=== PATIENT | male | born 1950 | race Asian ===

== ENCOUNTER → 2017-03-01 | Outpatient (CLI) | payer MEDICARE ==
[~2017-03-01] MED LIST: ATROPINE SULFATE 0.1 MG/ML 10 ML SYRINGE IVP ONE; ATROPINE SULFATE 1 MG/ML VIAL ONE; DOBUTamine HCL/D5W 500 MG/250 ML IV BAG IV ONE; DOBUTamine HCL/D5W 500 MG/250 ML IV BAG [STRESS LAB ONLY] IV ONE
[2017-03-01 09:10] VITALS: BP 157/81
[2017-03-01 10:48] VITALS: BP 164/69
== END | disposition home or self-care (01) ==
LOC: CARDMN 02-28 09:07
PROVIDERS: ATTEND Internal Medicine Cardiovascular Disease
DX: I35.8 Other nonrheumatic aortic valve disorders (principal)
CPT/HCPCS: 93017; 93306; 93350; J0461; J1250

== ENCOUNTER → 2017-08-20 | Outpatient (CLI) | payer MEDICARE, OTHER | END | disposition home or self-care (01) | LOC: RADPV 09:37 | PROVIDERS: ATTEND Internal Medicine Nephrology | DX: N28.1 Cyst of kidney, acquired (principal); N18.1 Chronic kidney disease, stage 1 | CPT/HCPCS: 76770 ==

== ENCOUNTER → 2018-05-20 | Outpatient (CLI) | payer MEDICARE, MEDICAID | END | disposition home or self-care (01) | LOC: RADPV 13:05 | PROVIDERS: ATTEND Internal Medicine Geriatric Medicine | DX: I51.7 Cardiomegaly (principal); I70.0 Atherosclerosis of aorta; R91.8 Other nonspecific abnormal finding of lung field ==

== ENCOUNTER → 2018-07-24 | Outpatient (CLI) | payer MEDICARE, MEDICAID | END | disposition home or self-care (01) | LOC: RADPV 08:34 | PROVIDERS: ATTEND Hospitalist | DX: N28.1 Cyst of kidney, acquired (principal); N18.3 Chronic kidney disease, stage 3 (moderate) | CPT/HCPCS: 76770 ==

== ENCOUNTER → 2020-03-15 | Outpatient (CLI) | payer MEDICARE, MEDICAID ==
[2020-03-15 12:54] LABS: APPEARANCE,URINE CLEAR (CLEAR); BILIRUBIN,URINE NEGATIVE (NEGATIVE); GLUCOSE, URINE (UA) >=1000 mg/dL (NEGATIVE); KETONES,URINE NEGATIVE (NEGATIVE); LEUKOCYTE ESTERASE ,URINE NEGATIVE (NEGATIVE); NITRATE,URINE NEGATIVE (NEGATIVE); OCCULT BLOOD,URINE TRACE (NEGATIVE); PROTEIN,URINE SEE CONFIRM (NEGATIVE); UROBILINOGEN,URINE 0.2 mg/dL (<=1.0)
[2020-03-15 13:05] LABS: BASOPHILS % (AUTO) 0.7 % (0.0-2.0); HEMATOCRIT 47.1 % (41-53); LYMPHOCYTES # (AUTO) 3.1 K/uL (1.0-4.8); LYMPHOCYTES % (AUTO) 27.8 % (22.0-44.0); MEAN CORPUSCULAR HEMOGLOBIN 32.1 pg (26.0-34.0); MEAN CORPUSCULAR HGB CONC 33.9 G/dL (31.0-37.0); MEAN CORPUSCULAR VOLUME 95 fL (80-100); MONOCYTES # (AUTO) 0.8 K/uL (0.1-1.0); MONOCYTES % (AUTO) 6.7 % (2.0-9.0); NEUTROPHILS # (AUTO) 6.7 K/uL (1.8-7.7); NEUTROPHILS % (AUTO) 59.8 % (40.0-70.0); PLATELET COUNT (AUTO) 301 K/uL (150-450); RED BLOOD CELL COUNT(AUTO) 4.98 MIL/uL (4.50-5.90); RED CELL DISTRIBUTION WIDTH 14.8 % (11.5-14.5)
[2020-03-15 13:09] LABS: BACTERIA,URINE None Seen /HPF (None Seen); RBC,URINE 0-2 /HPF (0-2); SULFOSALICYLIC ACID,URINE 3+ (Negative); WBC,URINE 0-2 /HPF (0-5)
[2020-03-15 14:00] LABS: ALBUMIN 2.9 g/dL (3.4-5.0); BILIRUBIN,TOTAL 0.3 mg/dL (0.1-1.0); CALCIUM, TOTAL 9.1 mg/dL (8.8-10.5); CREATININE 1.41 mg/dL (0.60-1.30); PHOSPHORUS 4.1 mg/dL (2.5-4.9); TOTAL PROTEIN, SERUM 7.4 g/dL (6.4-8.2)
[2020-03-15 14:05] LABS: POTASSIUM 2.5 mmol/L (3.5-5.1)
[2020-03-15 15:32] LABS: HEMOGLOBIN A1C 6.5 % (3.8-5.6)
[2020-03-15 15:57] LABS: PROTEIN,URINE RANDOM 380 mg/dL (0-11.9)
== END | disposition home or self-care (01) ==
LOC: LABPV 08:35
PROVIDERS: ATTEND Hospitalist
DX: I10 Essential (primary) hypertension (principal); Z79.899 Other long term (current) drug therapy
CPT/HCPCS: 83036; 84156

== ENCOUNTER → 2020-04-06 | Outpatient (CLI) | payer MEDICARE, MEDICAID ==
[2020-04-06 13:11] LABS: ALBUMIN 3.1 g/dL (3.4-5.0); ANION GAP 10 mmol/L (8-16); CARBON DIOXIDE 24 mmol/L (22-29); CHLORIDE 106 mmol/L (98-107); CREATININE 1.09 mg/dL (0.60-1.30); GLOMERULAR FILTR. RATE CALC > 60 mL/min (>60); GLUCOSE,RANDOM 146 mg/dL (70-110); PHOSPHORUS 3.5 mg/dL (2.5-4.9); POTASSIUM 3.5 mmol/L (3.5-5.1); SODIUM SERUM 140 mmol/L (136-145); UREA NITROGEN, BLOOD 16 mg/dL (7-18)
[2020-04-06 13:15] LABS: BASOPHILS % (AUTO) 0.8 % (0.0-2.0); EOSINOPHILS % (AUTO) 5.1 % (1.0-6.0); HEMOGLOBIN 16.7 g/dL (13.5-17.5); LYMPHOCYTES # (AUTO) 2.8 K/uL (1.0-4.8); LYMPHOCYTES % (AUTO) 24.6 % (22.0-44.0); MEAN CORPUSCULAR HEMOGLOBIN 31.9 pg (26.0-34.0); MEAN CORPUSCULAR HGB CONC 33.4 G/dL (31.0-37.0); MEAN CORPUSCULAR VOLUME 96 fL (80-100); MONOCYTES # (AUTO) 0.7 K/uL (0.1-1.0); MONOCYTES % (AUTO) 6.5 % (2.0-9.0); NEUTROPHILS # (AUTO) 7.1 K/uL (1.8-7.7); PLATELET COUNT (AUTO) 314 K/uL (150-450); RED BLOOD CELL COUNT(AUTO) 5.23 MIL/uL (4.50-5.90); RED CELL DISTRIBUTION WIDTH 15.3 % (11.5-14.5)
[2020-04-06 13:34] LABS: HEMOGLOBIN A1C 6.5 % (3.8-5.6)
[2020-04-06 13:35] LABS: APPEARANCE,URINE CLEAR (CLEAR); BILIRUBIN,URINE NEGATIVE (NEGATIVE); GLUCOSE, URINE (UA) >=1000 mg/dL (NEGATIVE); KETONES,URINE NEGATIVE (NEGATIVE); LEUKOCYTE ESTERASE ,URINE NEGATIVE (NEGATIVE); NITRATE,URINE NEGATIVE (NEGATIVE); OCCULT BLOOD,URINE NEGATIVE (NEGATIVE); PROTEIN,URINE SEE CONFIRM (NEGATIVE); UROBILINOGEN,URINE 0.2 mg/dL (<=1.0)
[2020-04-06 14:03] LABS: BACTERIA,URINE None Seen /HPF (None Seen); RBC,URINE None Seen /HPF (0-2); SULFOSALICYLIC ACID,URINE 3+ (Negative); WBC,URINE None Seen /HPF (0-5)
[2020-04-06 14:13] LABS: PROTEIN,URINE RANDOM 400 mg/dL (0-11.9)
== END | disposition home or self-care (01) ==
LOC: LABPV 09:01
PROVIDERS: ATTEND Hospitalist
DX: E11.21 Type 2 diabetes mellitus with diabetic nephropathy (principal); E11.22 Type 2 diabetes mellitus with diabetic chronic kidney disease; N18.32 Chronic kidney disease, stage 3b
CPT/HCPCS: 82043; 82306; 82570; 83036; 83970; 84156

== ENCOUNTER 2025-03-04 18:01 | Inpatient (IN) | payer MEDICARE, MEDICAID ==
[~2025-03-04] VITALS: Ht 166.4 cm; Wt 74.5 kg
[2025-03-04 00:28] VITALS: BP 149/60; PULSE 77; RESP 18; TEMP 98.1; O2SAT 98
[2025-03-04] MEDS ORDERED: GLIP5TAB16 PO (18:11)
[2025-03-04] MEDS ORDERED: LOSA-381 PO (18:11)
[2025-03-04] MEDS ORDERED: CHOL500043 PO (18:11)
[2025-03-04 18:30] LABS: PLATELET COUNT (AUTO) 289 K/uL (150-450); RED BLOOD CELL COUNT(AUTO) 4.24 MIL/uL (4.50-5.90); RED CELL DISTRIBUTION WIDTH 16.5 % (11.5-14.5); WHITE BLOOD COUNT (AUTO) 11.4 K/uL (4.5-11.0)
[2025-03-04 18:43] LABS: CALCIUM, TOTAL 9.2 mg/dL (8.8-10.5); CREATININE 4.5 mg/dL (0.60-1.30); GLOMERULAR FILTR. RATE CALC 13.0 mL/min (>60); GLUCOSE,RANDOM 118.0 mg/dL (70-110); SODIUM SERUM 139.0 mmol/L (136-145); UREA NITROGEN, BLOOD 52.0 mg/dL (7-18)
[2025-03-04 18:44] LABS: BAND NEUTROPHILS % (MANUAL) 2 % (0-5); EOSINOPHILS % (MANUAL) 4 % (1-6); LYMPHOCYTES % (MANUAL) 30 % (22-44); MONOCYTES % (MANUAL) 6 % (2-9); RBC MORPHOLOGY COMMENT NORMAL RBC MORPH; SEGMENTED NEUTROPHILS % 58 % (40-70)
[2025-03-04 18:58] LABS: ASPARTATE AMINOTRANSFERASE 25.0 U/L (15-37); TOTAL PROTEIN, SERUM 7.9 g/dL (6.4-8.2); TROPONIN I-HIGH SENSITIVITY 19 ng/L (<76)
[2025-03-04] MEDS ORDERED: INSULIN REGULAR, HUMAN 100 UNITS/ML IVP ONE (19:00)
[2025-03-04 19:01] VITALS: PULSE 84; RESP 22; O2SAT 95
[2025-03-04] MEDS: CALCIUM GLUCONATE 1,000 MG in DEXTROSE 5%-WATER 50 ML IV ONE (19:36)
[2025-03-04] MEDS: DEXTROSE 50%-WATER 25 GM/50 ML SYRINGE IVP ONE (19:36)
[2025-03-04] MEDS: INSULIN REGULAR, HUMAN 100 UNITS/ML IVP ONE (19:37)
[2025-03-04] MEDS: SODIUM ZIRCONIUM CYCLOSILICATE 10 GM POWDER PACKET PO ONE (19:37)
[2025-03-04] MEDS ORDERED: DEXTROSE 50%-WATER 25 GM/50 ML SYRINGE IVP PRN (19:45)
[2025-03-04] MEDS ORDERED: ONDANSETRON HCL 4 MG/2 ML VIAL IVP PRN (19:45)
[2025-03-04] MEDS ORDERED: ACETAMINOPHEN 325 MG TABLET PO PRN (19:45)
[2025-03-04 20:09] LABS: APPEARANCE,URINE CLEAR (CLEAR); GLUCOSE, URINE (UA) 70-100 mg/dL (NEGATIVE); LEUKOCYTE ESTERASE ,URINE NEGATIVE (NEGATIVE); NITRATE,URINE NEGATIVE (NEGATIVE); OCCULT BLOOD,URINE NEGATIVE (NEGATIVE); SPECIFIC GRAVITIY, URINE 1.008 (1.003-1.030)
[2025-03-04] MEDS: ALBUTEROL SULFATE 2.5 MG/0.5 ML 5 ML NEB SOLUTION NEB ONE (20:13)
[2025-03-04 20:16] LABS: SQUAMOUS EPITHELIAL CELL,UR Rare /LPF (None Seen)
[2025-03-04] MEDS: SODIUM BICARBONATE 650 MG TABLET PO SCH (21:00)
[2025-03-04] MEDS: DOCUSATE SODIUM 100 MG CAPSULE PO SCH (21:00)
[2025-03-04 22:17] LABS: CALCIUM, TOTAL 8.9 mg/dL (8.8-10.5); CREATININE 4.21 mg/dL (0.60-1.30); GLOMERULAR FILTR. RATE CALC 14.0 mL/min (>60); GLUCOSE,RANDOM 100.0 mg/dL (70-110); SODIUM SERUM 138.0 mmol/L (136-145); UREA NITROGEN, BLOOD 52.0 mg/dL (7-18)
[2025-03-05] VITALS (12 sets, daily range): BP systolic 124–149; BP diastolic 7–66; PULSE 39–82; RESP 16–19; TEMP 97.5–98.1; O2SAT 96–100
[2025-03-05] MEDS: HEPARIN SODIUM,PORCINE 5,000 UNITS/ML VIAL SQ SCH (00:31)
[2025-03-05 06:54] LABS: CALCIUM, TOTAL 8.8 mg/dL (8.8-10.5); CREATININE 4.13 mg/dL (0.60-1.30); GLOMERULAR FILTR. RATE CALC 14.0 mL/min (>60); GLUCOSE,RANDOM 83.0 mg/dL (70-110); SODIUM SERUM 137.0 mmol/L (136-145); UREA NITROGEN, BLOOD 50.0 mg/dL (7-18)
[2025-03-05] MEDS: INSULIN REGULAR, HUMAN 100 UNITS/ML IVP ONE ×2 (08:00→13:53)
[2025-03-05] MEDS: SODIUM ZIRCONIUM CYCLOSILICATE 10 GM POWDER PACKET PO ONE ×2 (08:00→13:50)
[2025-03-05] MEDS: DEXTROSE 50%-WATER 25 GM/50 ML SYRINGE IVP ONE ×2 (08:16→13:51)
[2025-03-05] MEDS: FAMOTIDINE 20 MG TABLET PO SCH (08:53)
[2025-03-05] MEDS: SODIUM BICARBONATE 75 MEQ in SODIUM CHLORIDE 0.45% 1,000 ML IV ONE (14:24)
[2025-03-05] MEDS: BUMETANIDE 0.25 MG/ML 4 ML VIAL IVP ONE (15:40)
[2025-03-05] MEDS: ALBUTEROL SULFATE 2.5 MG/0.5 ML 5 ML NEB SOLUTION NEB ONE (16:05)
[2025-03-05] MEDS: INSULIN LISPRO 100 UNITS/ML SQ PRN (17:34)
[2025-03-06] VITALS: BP 140/60; PULSE 75; RESP 20; TEMP 98; O2SAT 95
[2025-03-06 04:29] VITALS: BP 155/69; PULSE 67; RESP 18; TEMP 98.2; O2SAT 95
[2025-03-06 07:13] LABS: CALCIUM, TOTAL 8.6 mg/dL (8.8-10.5); CREATININE 4.25 mg/dL (0.60-1.30); GLOMERULAR FILTR. RATE CALC 14.0 mL/min (>60); GLUCOSE,RANDOM 103.0 mg/dL (70-110); SODIUM SERUM 138.0 mmol/L (136-145); UREA NITROGEN, BLOOD 53.0 mg/dL (7-18)
[2025-03-06 07:26] LABS: CHOL/HDL RATIO 2.9 (4.2-7.3); LDL CHOL (CALC.) 57.0 mg/dL (0-130)
[2025-03-06 07:42] VITALS: BP 130/50; PULSE 59; RESP 19; TEMP 98; O2SAT 97
[2025-03-06] MEDS: SODIUM POLYSTYRENE SULFONATE 15 GM/60 ML SUSPENSION BOTTLE PO ONE (08:49)
[2025-03-06 11:15] VITALS: BP 150/77; PULSE 69; RESP 19; TEMP 97.7; O2SAT 96
[2025-03-06] MEDS ORDERED: LINA5TAB PO (12:19)
[2025-03-06] MEDS ORDERED: HYDR25TA84 PO (12:19)
[2025-03-06] MEDS ORDERED: ATOR40TA71 PO (12:19)
[2025-03-06] MEDS ORDERED: AMLO10TA55 PO (12:19)
[2025-03-06 12:48] LABS: PLATELET COUNT (AUTO) 328 K/uL (150-450); RED BLOOD CELL COUNT(AUTO) 4.60 MIL/uL (4.50-5.90); RED CELL DISTRIBUTION WIDTH 16.1 % (11.5-14.5); WHITE BLOOD COUNT (AUTO) 11.1 K/uL (4.5-11.0)
[2025-03-06 12:55] LABS: BAND NEUTROPHILS % (MANUAL) 1 % (0-5); EOSINOPHILS % (MANUAL) 5 % (1-6); LYMPHOCYTES % (MANUAL) 25 % (22-44); MONOCYTES % (MANUAL) 9 % (2-9); SEGMENTED NEUTROPHILS % 60 % (40-70)
[2025-03-06] MEDS ORDERED: SODI10PO3 PO (13:57)
[2025-03-06] MEDS ORDERED: SODI650T33 PO (13:57)
== END 2025-03-06 15:45 | disposition home or self-care (01) | DRG 641 ==
LOC: EMS 18:01 → EDH 19:42 → 5S 03-05
PROVIDERS: ADMIT Internal Medicine; ATTEND Internal Medicine
DX: E87.5 Hyperkalemia (principal); N18.5 Chronic kidney disease, stage 5; I16.0 Hypertensive urgency; I12.9 Hypertensive chronic kidney disease with stage 1 through stage 4 chronic kidney disease, or unspecified chronic kidney disease; E11.22 Type 2 diabetes mellitus with diabetic chronic kidney disease; E78.5 Hyperlipidemia, unspecified; E87.20 Acidosis, unspecified; J44.9 Chronic obstructive pulmonary disease, unspecified; Z79.84 Long term (current) use of oral hypoglycemic drugs; Z83.3 Family history of diabetes mellitus
CPT/HCPCS: 71045; 76770; 80048; 80061; 80076; 81001; 82271; 83036; 83880; 84132; 84484; 84550; 85025; 93005; 94640; 96374; 96375; 99291; G0378; J0610; J1644; J1815; J3490; J7060; 36415-L1; 36415-TC